=== PATIENT | male | born 1960 | race Hispanic/Latino ===

== ENCOUNTER 2022-02-10 21:50 | Emergency (ER) | payer OTHER ==
[~2022-02-10] VITALS: Ht 144.8 cm; Wt 47.6 kg
[2022-02-10 22:09] LABS: BASOPHILS % (AUTO) 0.7 % (0.0-5.0); EOSINOPHILS % (AUTO) 3.1 % (0.0-8.0); HEMATOCRIT 42.3 % (42-54); LYMPHOCYTES % (AUTO) 24.2 % (21.0-51.0); MEAN CORPUSCULAR HGB CONC 34.3 g/dL (32.0-36.0); MEAN CORPUSCULAR VOLUME 87.4 fL (79-99); MONOCYTES % (AUTO) 6.9 % (3.0-13.0); NEUTROPHILS % (AUTO) 64.8 % (40.0-77.0); PLATELET COUNT (AUTO) 235 K/uL (130-400); RED BLOOD CELL COUNT(AUTO) 4.84 MIL/uL (4.50-6.20); RED CELL DISTRIBUTION WIDTH 14.1 % (11.0-15.5); WHITE BLOOD COUNT (AUTO) 8.7 K/uL (4.8-10.8)
[2022-02-10 22:17] LABS: CREATININE 1.2 mg/dL (0.5-1.5); POTASSIUM 4.4 mmol/L (3.5-5.1)
[2022-02-10 22:24] LABS: ALBUMIN 3.7 g/dL (3.5-5.0)
[2022-02-10] MEDS ORDERED: IPRATROPIUM/ALBUTEROL SULFATE 3 ML SOLUTION IH ONE (22:30)
[2022-02-10 22:33] LABS: B-TYPE NATRIURETIC PEPTIDE 44 pg/mL (0-100)
[2022-02-10] MEDS ORDERED: IOHEXOL-350 75 ML VIAL IV ONE (22:52)
[2022-02-10] MEDS ORDERED: 0.9%NACL 1000ML 1,000 ML IV ONE (23:00)
[2022-02-11] MEDS ORDERED: PRED20TA3 PO (00:43)
[2022-02-11] MEDS ORDERED: DOXY-336 PO (00:43)
[2022-02-11] MEDS ORDERED: ALBUHFA IH (00:43)
[2022-02-11 00:48] VITALS: BP 142/62
== END 2022-02-11 00:57 | disposition home or self-care (01) ==
LOC: EDH 21:50
DX: R06.00 Dyspnea, unspecified (principal); J44.1 Chronic obstructive pulmonary disease with (acute) exacerbation; R91.1 Solitary pulmonary nodule; Z20.822 Contact with and (suspected) exposure to COVID-19; F17.210 Nicotine dependence, cigarettes, uncomplicated
CPT/HCPCS: 99285; 96360; 71275; 71045; 87635; 96361; 84484; 80053; 83880; 85025; 85378; 36415; 93005; 94640; C9803; J7030; Q9967

== ENCOUNTER 2022-02-15 22:15 | Emergency (ER) | payer OTHER ==
[~2022-02-15 22:15] MED LIST: ALBUHFA IH; DOXY-336 PO; PRED20TA3 PO
[2022-02-15 22:33] LABS: BASOPHILS % (AUTO) 0.2 % (0.0-5.0); EOSINOPHILS % (AUTO) 0.1 % (0.0-8.0); HEMATOCRIT 43.5 % (42-54); LYMPHOCYTES % (AUTO) 22.5 % (21.0-51.0); MEAN CORPUSCULAR HEMOGLOBIN 29.7 pg (27.0-33.0); MEAN CORPUSCULAR HGB CONC 34.3 g/dL (32.0-36.0); MEAN CORPUSCULAR VOLUME 86.7 fL (79-99); MONOCYTES % (AUTO) 6.5 % (3.0-13.0); NEUTROPHILS % (AUTO) 70.1 % (40.0-77.0); PLATELET COUNT (AUTO) 255 K/uL (130-400); RED BLOOD CELL COUNT(AUTO) 5.02 MIL/uL (4.50-6.20); RED CELL DISTRIBUTION WIDTH 14.5 % (11.0-15.5); WHITE BLOOD COUNT (AUTO) 8.5 K/uL (4.8-10.8)
[2022-02-15 22:50] LABS: CREATININE 1.2 mg/dL (0.5-1.5); POTASSIUM 4.2 mmol/L (3.5-5.1)
[2022-02-15 22:55] LABS: ALBUMIN 3.7 g/dL (3.5-5.0); TOTAL PROTEIN, SERUM 7.4 g/dL (6.0-8.3)
[2022-02-15] MEDS ORDERED: SOLU-MEDROL 40MG VIAL ONE (23:51)
[2022-02-16] MEDS ORDERED: SOLU-MEDROL 40MG VIAL IVP ONE
[2022-02-16] MEDS ORDERED: IPRATROPIUM/ALBUTEROL SULFATE 3 ML SOLUTION IH ONE
[2022-02-16 00:51] VITALS: BP 141/69
== END 2022-02-16 00:58 | disposition home or self-care (01) ==
LOC: EDH 22:15
DX: J44.1 Chronic obstructive pulmonary disease with (acute) exacerbation (principal); F17.210 Nicotine dependence, cigarettes, uncomplicated; Z86.73 Personal history of transient ischemic attack (TIA), and cerebral infarction without residual deficits; Z79.52 Long term (current) use of systemic steroids
CPT/HCPCS: 99285; 96374; 71045; 84484; 80053; 85025; 36415; 93005; 94640; J2920

== ENCOUNTER 2022-03-27 13:29 | Emergency (ER) | payer OTHER ==
[~2022-03-27] VITALS: Ht 142.2 cm; Wt 40.8 kg
[~2022-03-27 13:29] MED LIST changes: +ALBU18HF7 IH; -ALBUHFA IH; +ASPI-1197 PO; -DOXY-336 PO; +IPRA3AMP24 IH; +LEVO750T68 PO; +OMEP40CA21 PO
[2022-03-27] MEDS ORDERED: KETOROLAC 60 MG VIAL (30MG/ML) IM ONE (14:00)
[2022-03-27] MEDS ORDERED: HYDROCODONE/ACETAMINOPHEN 5/325 MG TAB PO ONE (14:00)
[2022-03-27] MEDS ORDERED: ACET-2079 PO (14:05)
[2022-03-27 14:41] VITALS: BP 123/78
== END 2022-03-27 14:42 | disposition home or self-care (01) ==
LOC: EDH 13:29
DX: M25.512 Pain in left shoulder (principal); M79.602 Pain in left arm; J44.9 Chronic obstructive pulmonary disease, unspecified; F17.200 Nicotine dependence, unspecified, uncomplicated; Z79.1 Long term (current) use of non-steroidal anti-inflammatories (NSAID); Z79.52 Long term (current) use of systemic steroids; Z79.82 Long term (current) use of aspirin
CPT/HCPCS: 99283; 73030; 96372; J1885

== ENCOUNTER 2022-04-24 20:25 | Emergency (ER) | payer OTHER ==
[~2022-04-24] VITALS: Ht 144.8 cm; Wt 44.5 kg
[~2022-04-24 20:25] MED LIST changes: +ACET-2079 PO
[2022-04-24 20:26] VITALS: BP 150/72
== END 2022-04-24 21:00 | disposition left against medical advice (07) ==
LOC: EDH 20:25
DX: R06.02 Shortness of breath (principal); Z53.21 Procedure and treatment not carried out due to patient leaving prior to being seen by health care provider

== ENCOUNTER 2022-05-25 02:06 | Emergency (ER) | payer MEDICAID, OTHER ==
[~2022-05-25] VITALS: Ht 142.2 cm; Wt 46.3 kg
[~2022-05-25 02:06] MED LIST changes: -ASPI-1197 PO; -LEVO750T68 PO; -OMEP40CA21 PO; +PANT40SU PEG; +PRED15SO6 PO; -PRED20TA3 PO
[2022-05-25] MEDS ORDERED: ASPI-1197 PO (02:15)
[2022-05-25] MEDS ORDERED: OMEP40CA21 PO (02:16)
[2022-05-25 04:11] LABS: BASOPHILS % (AUTO) 0.4 % (0.0-5.0); EOSINOPHILS % (AUTO) 4.2 % (0.0-8.0); HEMATOCRIT 37.4 % (42-54); LYMPHOCYTES % (AUTO) 21.3 % (21.0-51.0); MEAN CORPUSCULAR HEMOGLOBIN 29.1 pg (27.0-33.0); MEAN CORPUSCULAR HGB CONC 32.6 g/dL (32.0-36.0); MEAN CORPUSCULAR VOLUME 89.3 fL (79-99); MONOCYTES % (AUTO) 5.3 % (3.0-13.0); NEUTROPHILS % (AUTO) 68.4 % (40.0-77.0); PLATELET COUNT (AUTO) 209 K/uL (130-400); RED BLOOD CELL COUNT(AUTO) 4.19 MIL/uL (4.50-6.20); RED CELL DISTRIBUTION WIDTH 14.4 % (11.0-15.5); WHITE BLOOD COUNT (AUTO) 7.4 K/uL (4.8-10.8)
[2022-05-25 04:23] LABS: POTASSIUM 3.8 mmol/L (3.5-5.1)
[2022-05-25 04:27] LABS: B-TYPE NATRIURETIC PEPTIDE 33 pg/mL (0-100)
[2022-05-25 04:28] LABS: ALBUMIN 2.8 g/dL (3.5-5.0); MAGNESIUM 2.1 mg/dL (1.80-2.40); TOTAL PROTEIN, SERUM 7.3 g/dL (6.0-8.3)
[2022-05-25] MEDS ORDERED: DEXAMETHASONE SOD PHOSPHATE 4 MG/ML 1ML VIAL IVP ONE (05:00)
[2022-05-25] MEDS ORDERED: IPRATROPIUM/ALBUTEROL SULFATE 3 ML SOLUTION IH ONE (05:00)
[2022-05-25] MEDS ORDERED: RACEPINEPHRINE HCL 2.25% 0.5 ML NEB SOLN NEB ONE (05:00)
[2022-05-25] MEDS ORDERED: IOHEXOL 350 MG/ML 100ML INFUS..BTL IV ONE (05:52)
[2022-05-25 10:16] VITALS: BP 131/77
== END 2022-05-25 10:40 | disposition home or self-care (01) ==
LOC: EDH 02:06
DX: J44.1 Chronic obstructive pulmonary disease with (acute) exacerbation (principal); Z85.118 Personal history of other malignant neoplasm of bronchus and lung; Z79.899 Other long term (current) drug therapy; Z20.822 Contact with and (suspected) exposure to COVID-19; Z86.73 Personal history of transient ischemic attack (TIA), and cerebral infarction without residual deficits
CPT/HCPCS: 99285; 96374; 71270; 71045; 87635; 82550; 83735; 84484; 80053; 83880; 85025; 85378; 87804 ×2; 36415; 93005; 94640 ×2; J1100; C9803; Q9967

== ENCOUNTER 2022-05-28 23:06 | Emergency (ER) | payer OTHER ==
[~2022-05-28] VITALS: Ht 144.8 cm; Wt 47.6 kg
[~2022-05-28 23:06] MED LIST changes: +ASPI-1197 PO; +OMEP40CA21 PO
[2022-05-29] MEDS ORDERED: ALBUTEROL 0.083% 2.5 MG/3 ML INH IH ONE
[2022-05-29] MEDS ORDERED: IPRATROPIUM 0.5 MG/2.5 ML INH IH ONE
[2022-05-29] MEDS ORDERED: PRED20TA3 PO (01:16)
[2022-05-29 01:36] VITALS: BP 125/74
[2022-05-29] MEDS ORDERED: HYDR-3422 PO (19:24)
== END 2022-05-29 01:36 | disposition home or self-care (01) ==
LOC: EDH 23:06
DX: R06.00 Dyspnea, unspecified (principal); J44.9 Chronic obstructive pulmonary disease, unspecified; Z85.118 Personal history of other malignant neoplasm of bronchus and lung
CPT/HCPCS: 71045; 94640

== ENCOUNTER 2022-05-29 17:14 | Emergency (ER) | payer OTHER ==
[~2022-05-29] VITALS: Ht 175.3 cm; Wt 56.7 kg
[~2022-05-29 17:14] MED LIST changes: +PRED20TA3 PO
[2022-05-29 18:09] LABS: BASOPHILS % (AUTO) 0.5 % (0.0-5.0); EOSINOPHILS % (AUTO) 3.8 % (0.0-8.0); HEMATOCRIT 37.1 % (42-54); LYMPHOCYTES % (AUTO) 30.8 % (21.0-51.0); MEAN CORPUSCULAR HGB CONC 32.6 g/dL (32.0-36.0); MONOCYTES % (AUTO) 7.8 % (3.0-13.0); NEUTROPHILS % (AUTO) 56.3 % (40.0-77.0); PLATELET COUNT (AUTO) 276 K/uL (130-400); RED BLOOD CELL COUNT(AUTO) 4.17 MIL/uL (4.50-6.20); RED CELL DISTRIBUTION WIDTH 14.4 % (11.0-15.5); WHITE BLOOD COUNT (AUTO) 8.4 K/uL (4.8-10.8)
[2022-05-29 18:10] LABS: APPEARANCE,URINE CLEAR (CLEAR); BILIRUBIN,URINE NEGATIVE (NEGATIVE); COLOR,URINE LIGHT-YELLOW (YELLOW); GLUCOSE, URINE (UA) NEGATIVE (NEGATIVE); KETONES,URINE NEGATIVE (NEGATIVE); LEUKOCYTE ESTERASE ,URINE NEGATIVE Leu/uL (NEGATIVE); NITRATE,URINE NEGATIVE (NEGATIVE); OCCULT BLOOD,URINE NEGATIVE (NEGATIVE); PROTEIN,URINE NEGATIVE (NEGATIVE); UROBILINOGEN,URINE 0.2 mg/dL (0.2-1.0)
[2022-05-29] MEDS ORDERED: ALBUTEROL 0.083% 2.5 MG/3 ML INH IH ONE (18:15)
[2022-05-29 18:17] LABS: CREATININE 0.9 mg/dL (0.5-1.5); POTASSIUM 3.7 mmol/L (3.5-5.1)
[2022-05-29 18:25] LABS: ALBUMIN 3.1 g/dL (3.5-5.0); TOTAL PROTEIN, SERUM 7.3 g/dL (6.0-8.3)
[2022-05-29] MEDS ORDERED: HYDR-3422 PO (19:24)
[2022-05-29 19:33] VITALS: BP 127/77
== END 2022-05-29 19:38 | disposition home or self-care (01) ==
LOC: EDH 17:14
DX: F41.9 Anxiety disorder, unspecified (principal); J44.9 Chronic obstructive pulmonary disease, unspecified; F17.200 Nicotine dependence, unspecified, uncomplicated; Z79.82 Long term (current) use of aspirin; Z79.899 Other long term (current) drug therapy; Z20.822 Contact with and (suspected) exposure to COVID-19
CPT/HCPCS: 99285; 71045; 87635; 84484; 80053; 85025; 87804 ×2; 81003; 36415; 93005; 94640; C9803

== ENCOUNTER 2022-06-25 01:15 | Emergency (ER) | payer OTHER ==
[~2022-06-25] VITALS: Ht 144.8 cm; Wt 49.0 kg
[~2022-06-25 01:15] MED LIST changes: +HYDR-3422 PO
[2022-06-25 01:43] LABS: BASOPHILS % (AUTO) 0.4 % (0.0-5.0); EOSINOPHILS % (AUTO) 4.3 % (0.0-8.0); HEMATOCRIT 37.7 % (42-54); LYMPHOCYTES % (AUTO) 28.2 % (21.0-51.0); MEAN CORPUSCULAR HEMOGLOBIN 28.7 pg (27.0-33.0); MEAN CORPUSCULAR HGB CONC 33.2 g/dL (32.0-36.0); MEAN CORPUSCULAR VOLUME 86.7 fL (79-99); MONOCYTES % (AUTO) 6.8 % (3.0-13.0); NEUTROPHILS % (AUTO) 59.9 % (40.0-77.0); PLATELET COUNT (AUTO) 207 K/uL (130-400); RED BLOOD CELL COUNT(AUTO) 4.35 MIL/uL (4.50-6.20); RED CELL DISTRIBUTION WIDTH 13.8 % (11.0-15.5); WHITE BLOOD COUNT (AUTO) 6.8 K/uL (4.8-10.8)
[2022-06-25 01:53] LABS: CREATININE 0.9 mg/dL (0.5-1.5); POTASSIUM 4.3 mmol/L (3.5-5.1)
[2022-06-25 01:57] LABS: INR 0.93 (0.85-1.15); PROTHROMBIN TIME 9.8 SEC (9.6-11.6)
[2022-06-25 01:58] LABS: ALBUMIN 3.1 g/dL (3.5-5.0); PARTIAL THROMBOPLASTIN TIME 20.4 SEC (26.3-35.5); TOTAL PROTEIN, SERUM 7.2 g/dL (6.0-8.3)
[2022-06-25] MEDS ORDERED: SOLU-MEDROL 125MG VIAL ONE (02:18)
[2022-06-25 02:23] LABS: B-TYPE NATRIURETIC PEPTIDE 35 pg/mL (0-100)
[2022-06-25] MEDS ORDERED: ALBUTEROL 0.083% 2.5 MG/3 ML INH IH ONE (02:28)
[2022-06-25] MEDS ORDERED: IPRATROPIUM 0.5 MG/2.5 ML INH IH ONE (02:29)
[2022-06-25] MEDS ORDERED: SOLU-MEDROL 125MG VIAL IVP ONE (02:30)
[2022-06-25] MEDS ORDERED: IPRATROPIUM/ALBUTEROL SULFATE 3 ML SOLUTION IH ONE (02:30)
[2022-06-25] MEDS ORDERED: PRED20TA3 PO (02:57)
[2022-06-25] MEDS ORDERED: ALBU90AE2 IH (02:57)
[2022-06-25] MEDS ORDERED: CEFU500T67 PO (02:57)
[2022-06-25 05:27] VITALS: BP 138/60
== END 2022-06-25 02:47 | disposition home or self-care (01) ==
LOC: EDH 01:15
DX: J44.1 Chronic obstructive pulmonary disease with (acute) exacerbation (principal); F17.200 Nicotine dependence, unspecified, uncomplicated; Z79.899 Other long term (current) drug therapy; Z79.82 Long term (current) use of aspirin; Z85.118 Personal history of other malignant neoplasm of bronchus and lung
CPT/HCPCS: 99284; 71045; 84484; 80053; 83880; 85025; 85610; 85730; 36415; 70360; 94640; J2930

== ENCOUNTER 2022-07-02 15:11 | Emergency (ER) | payer MEDICAID, OTHER ==
[~2022-07-02] VITALS: Ht 144.8 cm; Wt 47.6 kg
[~2022-07-02 15:11] MED LIST changes: -ACET-2079 PO; +ALBU90AE2 IH; +CEFU500T67 PO; -PRED15SO6 PO
[2022-07-02 15:52] LABS: APPEARANCE,URINE CLEAR (CLEAR); BILIRUBIN,URINE NEGATIVE (NEGATIVE); COLOR,URINE LIGHT-YELLOW (YELLOW); GLUCOSE, URINE (UA) NEGATIVE (NEGATIVE); KETONES,URINE NEGATIVE (NEGATIVE); LEUKOCYTE ESTERASE ,URINE NEGATIVE Leu/uL (NEGATIVE); NITRATE,URINE NEGATIVE (NEGATIVE); OCCULT BLOOD,URINE NEGATIVE (NEGATIVE); PROTEIN,URINE NEGATIVE (NEGATIVE); UROBILINOGEN,URINE 0.2 mg/dL (0.2-1.0)
[2022-07-02] MEDS ORDERED: DEXAMETHASONE SOD PHOSPHATE 4 MG/ML 1ML VIAL IVP ONE (16:30)
[2022-07-02] MEDS ORDERED: IPRATROPIUM/ALBUTEROL SULFATE 3 ML SOLUTION IH ONE (16:30)
[2022-07-02] MEDS ORDERED: IPRATROPIUM 0.5 MG/2.5 ML INH IH ONE (16:39)
[2022-07-02] MEDS ORDERED: ALBUTEROL 0.083% 2.5 MG/3 ML INH IH ONE (16:39)
[2022-07-02 16:41] LABS: BASOPHILS % (AUTO) 0.7 % (0.0-5.0); EOSINOPHILS % (AUTO) 1.4 % (0.0-8.0); LYMPHOCYTES % (AUTO) 25.9 % (21.0-51.0); MEAN CORPUSCULAR HEMOGLOBIN 28.7 pg (27.0-33.0); MEAN CORPUSCULAR HGB CONC 32.8 g/dL (32.0-36.0); MEAN CORPUSCULAR VOLUME 87.7 fL (79-99); MONOCYTES % (AUTO) 8.5 % (3.0-13.0); PLATELET COUNT (AUTO) 319 K/uL (130-400); RED BLOOD CELL COUNT(AUTO) 4.56 MIL/uL (4.50-6.20); RED CELL DISTRIBUTION WIDTH 14.1 % (11.0-15.5); WHITE BLOOD COUNT (AUTO) 12.1 K/uL (4.8-10.8)
[2022-07-02 16:50] LABS: CREATININE 0.9 mg/dL (0.5-1.5); POTASSIUM 3.8 mmol/L (3.5-5.1)
[2022-07-02 16:54] LABS: ALBUMIN 2.9 g/dL (3.5-5.0); TOTAL PROTEIN, SERUM 6.5 g/dL (6.0-8.3)
[2022-07-02 17:00] VITALS: BP 132/75
[2022-07-02] MEDS ORDERED: PRED20TA3 PO (19:22)
== END 2022-07-02 20:21 | disposition home or self-care (01) ==
LOC: EDH 15:11
DX: J44.1 Chronic obstructive pulmonary disease with (acute) exacerbation (principal); R06.09 Other forms of dyspnea; C32.9 Malignant neoplasm of larynx, unspecified; C34.90 Malignant neoplasm of unspecified part of unspecified bronchus or lung; Z79.82 Long term (current) use of aspirin; Z79.899 Other long term (current) drug therapy; F17.200 Nicotine dependence, unspecified, uncomplicated; Z79.52 Long term (current) use of systemic steroids
CPT/HCPCS: 99285; 96374; 71045; 84484; 80053; 85025; 81003; 36415; 93005; 94640; J1100

== ENCOUNTER 2022-07-05 21:16 | Emergency (ER) | payer MEDICAID ==
[2022-07-05 21:59] LABS: BASOPHILS % (AUTO) 0.3 % (0.0-5.0); EOSINOPHILS % (AUTO) 1.4 % (0.0-8.0); HEMATOCRIT 39.1 % (42-54); MEAN CORPUSCULAR HEMOGLOBIN 28.8 pg (27.0-33.0); MEAN CORPUSCULAR HGB CONC 32.5 g/dL (32.0-36.0); MEAN CORPUSCULAR VOLUME 88.7 fL (79-99); MONOCYTES % (AUTO) 8.5 % (3.0-13.0); NEUTROPHILS % (AUTO) 61.9 % (40.0-77.0); PLATELET COUNT (AUTO) 262 K/uL (130-400); RED BLOOD CELL COUNT(AUTO) 4.41 MIL/uL (4.50-6.20); RED CELL DISTRIBUTION WIDTH 14.3 % (11.0-15.5); WHITE BLOOD COUNT (AUTO) 11.4 K/uL (4.8-10.8)
[2022-07-05 22:08] LABS: POTASSIUM 4.1 mmol/L (3.5-5.1)
[2022-07-05 22:17] LABS: ALBUMIN 2.9 g/dL (3.5-5.0); MAGNESIUM 2.1 mg/dL (1.80-2.40); TOTAL PROTEIN, SERUM 6.7 g/dL (6.0-8.3)
[2022-07-05 22:28] LABS: INR 0.93 (0.85-1.15); PROTHROMBIN TIME 9.6 SEC (9.6-11.6)
[2022-07-05 22:30] LABS: PARTIAL THROMBOPLASTIN TIME 24.9 SEC (26.3-35.5)
[2022-07-05] MEDS: SOLU-MEDROL 125MG VIAL IVP ONE (22:43)
[2022-07-05 22:48] LABS: B-TYPE NATRIURETIC PEPTIDE 21 pg/mL (0-100)
[2022-07-06] MEDS ORDERED: AZIT500T2 PO (00:06)
[2022-07-06] MEDS ORDERED: ALBU2.5V2 IH (00:06)
[2022-07-06] MEDS ORDERED: IPRNEB IH (00:06)
[2022-07-06] MEDS ORDERED: PRED20TA3 PO (00:06)
[2022-07-06 00:35] VITALS: BP 132/58
== END 2022-07-06 00:46 | disposition home or self-care (01) ==
LOC: EDH 21:16
DX: J45.909 Unspecified asthma, uncomplicated (principal); J44.9 Chronic obstructive pulmonary disease, unspecified; Z79.52 Long term (current) use of systemic steroids; Z79.82 Long term (current) use of aspirin; Z79.899 Other long term (current) drug therapy
CPT/HCPCS: 99285; 96374; 71045; 83735; 84484; 80053; 83880; 85025; 85610; 85730; 36415; 93005; J2930

== ENCOUNTER → 2022-09-16 | Outpatient (CLI) | payer MEDICAID ==
[~2022-09-16] MED LIST changes: +ALBU2.5V2 IH; +AZIT500T2 PO; +IPRNEB IH
[2022-09-16 14:14] LABS: CREATININE 0.9 mg/dL (0.5-1.5)
== END | disposition home or self-care (01) ==
LOC: LAB 13:32
PROVIDERS: ATTEND Internal Medicine Gastroenterology
DX: L03.818 Cellulitis of other sites (principal)
CPT/HCPCS: 36415; 82565; 84520

== ENCOUNTER 2022-11-02 07:41 | Emergency (ER) | payer MEDICAID ==
[~2022-11-02] VITALS: Ht 142.2 cm; Wt 52.2 kg
[2022-11-02 07:46] VITALS: BP 148/98
[2022-11-02] MEDS ORDERED: SOLU-MEDROL 125MG VIAL IVP SCH (08:00)
[2022-11-02] MEDS ORDERED: ASPIRIN 81MG CHEW TAB PO ONE (08:00)
[2022-11-02 08:17] LABS: BASOPHILS % (AUTO) 0.3 % (0.0-5.0); EOSINOPHILS % (AUTO) 0.1 % (0.0-8.0); HEMATOCRIT 43.8 % (42-54); LYMPHOCYTES % (AUTO) 14.5 % (21.0-51.0); MEAN CORPUSCULAR HEMOGLOBIN 29.6 pg (27.0-33.0); MEAN CORPUSCULAR HGB CONC 32.2 g/dL (32.0-36.0); MONOCYTES % (AUTO) 5.6 % (3.0-13.0); NEUTROPHILS % (AUTO) 79.1 % (40.0-77.0); PLATELET COUNT (AUTO) 268 K/uL (130-400); RED BLOOD CELL COUNT(AUTO) 4.76 MIL/uL (4.50-6.20); RED CELL DISTRIBUTION WIDTH 15.1 % (11.0-15.5); WHITE BLOOD COUNT (AUTO) 7.6 K/uL (4.8-10.8)
[2022-11-02 09:14] LABS: ALBUMIN 3.2 g/dL (3.5-5.0); CREATININE 1.1 mg/dL (0.5-1.5); POTASSIUM 4.1 mmol/L (3.5-5.1); TOTAL PROTEIN, SERUM 7.6 g/dL (6.0-8.3)
[2022-11-02] MEDS ORDERED: IOHEXOL 350 MG/ML 100ML INFUS..BTL IV ONE (09:38)
[2022-11-04] MEDS ORDERED: ACET-2079 PO (12:03)
[2022-11-04] MEDS ORDERED: DEXA4TAB PO (12:03)
[2022-11-04] MEDS ORDERED: FLUT1BLS15 IH (12:03)
[2022-11-04] MEDS ORDERED: ERYT30GE8 TP (12:03)
[2022-11-04] MEDS ORDERED: OLANZAPINE PO (12:03)
[2022-11-04] MEDS ORDERED: DOXY100T2 PO (12:03)
== END 2022-11-02 11:53 | disposition home or self-care (01) ==
LOC: EDH 07:41
DX: R91.8 Other nonspecific abnormal finding of lung field (principal); J44.9 Chronic obstructive pulmonary disease, unspecified; F17.200 Nicotine dependence, unspecified, uncomplicated; Z79.52 Long term (current) use of systemic steroids; Z79.82 Long term (current) use of aspirin; Z79.899 Other long term (current) drug therapy; Z85.118 Personal history of other malignant neoplasm of bronchus and lung
CPT/HCPCS: 99285; 71260; 96374; 71045; 84484; 80053; 85025; 36415; 70491; 93005; J2930; Q9967